=== PATIENT | female | born 1960 | race Caucasian/White ===

== ENCOUNTER 2021-11-05 12:52 | Outpatient (REF) | payer OTHER, SELFPAY ==
[2021-11-05 14:14] LABS: Hematocrit 39.8 % (37.0-47.0); Hemoglobin 13.4 g/dl (12.0-16.0); Mean Corpuscular HGB Conc 33.7 g/dl (31.0-35.0); Mean Corpuscular Hemoglobin 30.7 pg (27.0-33.0); Mean Corpuscular Volume 91.3 fL (80.0-98.0); Mean Platelet Volume 10.3 fL (9.4-12.3); Platelet Count 301 X10*3/uL (160-400); Red Blood Count 4.36 X10*6/uL (4.20-5.50); White Blood Count 6.3 X10*3/uL (4.8-10.8)
[2021-11-05 14:27] LABS: Alanine Aminotransferase 26 U/L (0-31); Albumin Level 4.4 g/dL (3.5-5.0); Alkaline Phosphatase 125 U/L (39-117); Anion Gap 12 (12-20); Aspartate Amino Transferase 26 U/L (5-31); Bilirubin Total 0.7 mg/dL (0.0-1.0); Blood Urea Nitrogen 11 mg/dL (9-16); Calcium 9.7 mg/dL (8.4-10.2); Carbon Dioxide 28 mmol/L (22-29); Chloride 103 mmol/L (96-108); Cholesterol 203 mg/dL; Estimated Glomerular Filt Rate > 60; Glucose Fasting 89 mg/dL (60-99); HDL Cholesterol 53 mg/dL; LDL Cholesterol Calculated 135 mg/dl; Potassium 4.3 mmol/L (3.3-5.1); Sodium 139 mmol/L (135-145); Total Protein 7.3 g/dL (6.5-8.0); Triglycerides 79 mg/dL
[2021-11-05 14:48] LABS: TSH reflex Free T4 0.06 uIU/mL (0.32-4.0)
[2021-11-05 15:35] LABS: Free T4 (Free Thyroxine) 1.21 ng/dL (0.71-1.85)
== END 2021-11-05 12:53 | disposition home or self-care (01) ==
LOC: HO.WFDLDS 12:52
PROVIDERS: Visit Provider Hospitalist
DX: Z00.00 Encounter for general adult medical examination without abnormal findings (principal); R82.71 Bacteriuria
CPT/HCPCS: 36415; 80053; 80061; 84439; 84443; 85027; 87086; 87088; 87186

== ENCOUNTER 2022-03-08 08:00 | Outpatient (REF) | payer OTHER, SELFPAY ==
[2022-03-08 09:17] LABS: Alanine Aminotransferase 27 U/L (0-31); Albumin Level 4.1 g/dL (3.5-5.0); Alkaline Phosphatase 130 U/L (39-117); Anion Gap 10 (12-20); Aspartate Amino Transferase 23 U/L (5-31); Blood Urea Nitrogen 16 mg/dL (9-16); Calcium 9.4 mg/dL (8.4-10.2); Carbon Dioxide 28 mmol/L (22-29); Chloride 104 mmol/L (96-108); Cholesterol 199 mg/dL; Estimated Glomerular Filt Rate > 60; Glucose Fasting 100 mg/dL (60-99); HDL Cholesterol 56 mg/dL; LDL Cholesterol Calculated 133 mg/dl; Potassium 4.4 mmol/L (3.3-5.1); Sodium 138 mmol/L (135-145); Total Protein 6.9 g/dL (6.5-8.0); Triglycerides 54 mg/dL
[2022-03-08 09:30] LABS: Vitamin D 25-OH Total 32.8 ng/mL (>30)
== END 2022-03-08 08:01 | disposition home or self-care (01) ==
LOC: HO.LAB 08:00
PROVIDERS: PCP Internal Medicine; Visit Provider Internal Medicine
DX: E78.5 Hyperlipidemia, unspecified (principal); E78.00 Pure hypercholesterolemia, unspecified; E55.9 Vitamin D deficiency, unspecified; M81.0 Age-related osteoporosis without current pathological fracture
CPT/HCPCS: 36415; 80053; 80061; 82306

== ENCOUNTER 2022-03-20 07:33 | Outpatient (REF) | payer OTHER, SELFPAY ==
--- NOTE | ~2022-03-20 | MM_ITS ---
EXAMINATION: MM SCREENING DIGITAL BREAST TOMOSYNTHESIS, BILATERAL CLINICAL INFORMATION: Screening. Asymptomatic. The lifetime risk of breast cancer based on the Tyrer-Cuzick Model is 5%. COMPARISON: Mammography: 02/07/2017 TECHNIQUE: Digital breast tomosynthesis is performed in both the craniocaudal and mediolateral oblique views along with computer-aided detection (CAD). Synthesized 2D images are generated from the tomosynthesis. FINDINGS: There are scattered areas of fibroglandular density (ACR BI-RADS breast composition Category b). There are no significant masses, abnormal calcifications, or other abnormalities. Fine fibronodular parenchymal pattern is similar to prior exams. The axilla and skin contours are unremarkable. MM/MM tomosynthesis screening BI IMPRESSION: No mammographic evidence of malignancy. ASSESSMENT: BI-RADS 1: Negative RECOMMENDATION: Routine annual mammography screening. This patient's information was entered into a reminder system with a target due date for their next mammogram.
--- NOTE | ~2022-03-20 | MM_ITS ---
EXAMINATION: BONE DENSITOMETRY CLINICAL INDICATION: Age-related osteoporosis without current pathological fracture. COMPARISON: Baseline BD dated 07/30/2016. TECHNIQUE: Using a [email or web address] DXA System (software version: 13.1) manufactured by [email or web address], dual-energy x-ray absorptiometry was performed of the lumbar spine and left hip. The images are of good technical quality. Summary results are attached. FINDINGS: AP SPINE L1-L4: Current: BMD 0.760 g/cm2, Z-score -1.8, T-score -3.5, osteoporosis, 11.6% decrease from baseline (<5% change is not significant). Baseline: BMD 0.860 g/cm2. LEFT FEMUR, NECK: Current: BMD 0.726 g/cm2, Z-score -0.7, T-score -2.2, osteopenia. Baseline: BMD 0.810 g/cm2. LEFT FEMUR, TOTAL: Current: BMD 0.772 g/cm2, Z-score -0.6, T-score -1.9, osteopenia, 12.6% decrease from baseline (<5% change is not significant). Baseline: BMD 0.883 g/cm2. IDENTIFIED RISK FACTORS: Osteoporosis, renal, history of fracture (adult). Early menopause, secondary osteoporosis, hysterectomy, bilateral oophorectomy. HISTORY OF FRACTURE: Femur/hip. MEDICATIONS: None listed. MM/XR DEXA axial skeleton IMPRESSION: 1. DIAGNOSIS: Osteoporosis based on the lowest T-score value of -3.5 in the lumbar spine applying World Health Organization criteria. 2. 10-YEAR FRACTURE RISK PREDICTION, FRAX: According to the guidelines, FRAX calculation should only be performed on patients in the osteopenia bone density category. Therefore, FRAX was not performed on this patient. 3. Treatment Recommendations: NOF guidelines recommend consideration for treatment in postmenopausal women and men age 50 and older presenting with the following: -A hip or vertebral (clinical or morphometric) fracture. -T-score less than or equal to -2.5 at the femoral neck or spine after appropriate evaluation to exclude secondary causes. -Low bone mass at the hip or spine and a 10-year fracture probability by FRAX of greater than or equal to 3% for hip fracture or greater than or equal to 20% for major osteoporotic fracture based on the [place] adapted WHO algorithm. 4. Other Recommendations: All treatment decisions require clinical judgment and consideration of individual patient factors, including patient preferences, comorbidities, previous drug use, risk factors not captured in the FRAX model (e.g. frailty, falls, vitamin D deficiency, increased bone turnover, interval significant decline in bone density) and possible under or overestimation of fracture risk by FRAX. Additional medical evaluation for secondary cause of low bone mineral density may be appropriate. FUTURE SCAN RECOMMENDATION: People with diagnosed cases of osteoporosis or at high risk for fracture should have regular bone mineral density tests. For patients eligible for Medicare, routine testing is allowed once every 2 years. The testing frequency can be increased to one year for patients who have rapidly progressing disease, those who are receiving or discontinuing medical therapy to restore bone mass, or have additional risk factors.
== END 2022-03-20 07:34 | disposition home or self-care (01) ==
LOC: HO.MAMMO 07:33
PROVIDERS: PCP Internal Medicine; Visit Provider Internal Medicine
DX: Z12.31 Encounter for screening mammogram for malignant neoplasm of breast (principal); Z13.820 Encounter for screening for osteoporosis; M81.0 Age-related osteoporosis without current pathological fracture; Z78.0 Asymptomatic menopausal state
CPT/HCPCS: 77063; 77067; 77080

== ENCOUNTER 2022-03-22 06:15 | Outpatient (REF) | payer OTHER, SELFPAY ==
[2022-03-22 07:46] LABS: Anion Gap 11 (12-20); Blood Urea Nitrogen 16 mg/dL (9-16); Calcium 9.5 mg/dL (8.4-10.2); Carbon Dioxide 28 mmol/L (22-29); Chloride 105 mmol/L (96-108); Estimated Glomerular Filt Rate > 60; Glucose Fasting 96 mg/dL (60-99); Potassium 4.3 mmol/L (3.3-5.1); Sodium 140 mmol/L (135-145)
[2022-03-22 08:11] LABS: Free T4 (Free Thyroxine) 1.19 ng/dL (0.71-1.85); Thyroid Stimulating Hormone 0.01 uIU/mL (0.32-4.0)
== END 2022-03-22 06:16 | disposition home or self-care (01) ==
LOC: HO.LAB 06:15
PROVIDERS: PCP Internal Medicine; Visit Provider Internal Medicine
DX: Z00.00 Encounter for general adult medical examination without abnormal findings (principal); E03.9 Hypothyroidism, unspecified
CPT/HCPCS: 36415; 80048; 84439; 84443

== ENCOUNTER 2022-03-26 14:57 | Outpatient (REF) | payer OTHER, SELFPAY ==
[2022-03-26 17:58] LABS: Phosphorus 3.8 mg/dL (2.7-4.5)
[2022-03-28 22:36] LABS: Prot Elec - Albumin 4.1 g/dL (3.8-4.8); Prot Elec - Alpha1 0.3 g/dL (0.2-0.3); Prot Elec - Alpha2 0.7 g/dL (0.5-0.9); Prot Elec - Beta 1 0.5 g/dL (0.4-0.6); Prot Elec - Beta 2 0.3 g/dL (0.2-0.5); Prot Elec - Total Protein 6.8 g/dL (6.1-8.1)
== END 2022-03-26 14:58 | disposition home or self-care (01) ==
LOC: HO.LAB 14:57
PROVIDERS: PCP Internal Medicine; Visit Provider Internal Medicine Endocrinology, Diabetes & Metabolism
DX: M81.0 Age-related osteoporosis without current pathological fracture (principal)
CPT/HCPCS: 84100; 84165; 86335; 99202

== ENCOUNTER 2022-03-28 10:54 | Outpatient (REF) | payer OTHER, SELFPAY ==
[2022-03-28 11:33] LABS: Total Volume 24 Hour Urine 2000 mL
[2022-03-28 12:22] LABS: Creatinine, 24Hr Urine 0.5 G/Day (1.0-2.0); Creatinine, mg/dL 24.76
[2022-03-30 17:01] LABS: Calcium, 24 Hr Urine 168 mg/24 h; Calcium/Creatinine Ratio 323 mg/g creat (30-275); Creatinine 24Hr Urine 0.52 g/24 h (0.50-2.15)
== END 2022-03-28 10:55 | disposition home or self-care (01) ==
LOC: HO.LNP 10:54
PROVIDERS: Visit Provider Internal Medicine Endocrinology, Diabetes & Metabolism
DX: M81.0 Age-related osteoporosis without current pathological fracture (principal)
CPT/HCPCS: 82340; 82570

== ENCOUNTER 2022-04-01 19:40 | Emergency (ER) | payer OTHER, SELFPAY ==
[2022-04-01 22:22] VITALS: BP 144/78; PULSE 75; RESP 16; TEMP 36.1; O2SAT 99; BMI 21.6
--- NOTE | 2022-04-01 23:56 | ED_ITS ---
HPI - Ear Problem General Chief complaint: Ear Problems Stated complaint: ear pain Time Seen by Provider: 04/01/22 23:42 Source: patient and reimbursement analyst Mode of arrival: ambulatory Limitations: no limitations History of Present Illness HPI Narrative: 62 y/o female presents to the ER for evaluation of left ear pain for the last 2 days. She reports throbbing pain and yellow discharge. She has been putting alcohol in her ear to help with itching sensation. She reports her hearing is slightly muffled. No fever or chills. No URI symptoms. MD Complaint: ear pain Location: left ear Duration: constant Severity: moderate Relieving factors: ear drops Exacerbating factors: chewing, position of head and palpation Discharge from ear: yes - purulent Associated symptoms ear: decreased hearing, external ear tenderness and ear swelling Treatment prior to arrival: eardrops Related Data Previous Rx's Medication Instructions Recorded levothyroxine 88 mcg tablet 88 mcg PO DAILY 90 Days #90 tab 03/23/22 cholecalciferol (vitamin D3) 50 50 mcg PO DAILY #30 cap 03/26/22 mcg (2,000 unit) capsule amoxicillin 875 mg-potassium 1 tab PO Q12H #20 tab 04/02/22 clavulanate 125 mg tablet dnytqgfc-szxpjytah-wlwdrfmcs 3.5 4 drp OTIC (EAR) LEFT Q6H 10 Days 04/02/22 mg/mL-10,000 unit/mL-1 % ear #10 ml solution Allergies Allergy/AdvReac Type Severity Reaction Status Date / Time doxycycline [DOXYCYCLINE] Allergy Unknown VOMITING/NA Verified 03/26/22 15:07 USEA Review of Systems Review of Systems: Constitutional: No Fever, No Chills ENT/Mouth: No sore throat, No Rhinorrhea, No Swallowing Difficulty, +otalgia, +ear discharge Cardiovascular: No Chest Pain, No SOB Respiratory: No Cough, No Sputum Gastrointestinal: No Nausea, No Vomiting Skin: No Skin Lesions, No rash Neuro: No Weakness, No Numbness, No Dizziness,+ Headache Psych: No Anxiety/Panic, No Depression Heme/Lymph: No Lymphadenopathy PMFSH Past Medical History Medical History (Updated 04/02/22 @ 00:18 by LANCE Escalante) Osteoporosis Pure hypercholesterolemia Vaginal pruritus Surgical History History of right breast biopsy History of total abdominal hysterectomy and bilateral salpingo-oophorectomy History of tubal ligation Family History Family History Mother Hypertension Poor circulation Father Diabetes Hypertension Hypothyroidism Poor circulation Social History Social History Housing: House (living with her daughter recently came from [place]) Alcohol intake: current Alcohol intake frequency: holidays/special occasions only Alcohol type: beer Patient Tobacco Use Status: Never used Tobacco e-Cigarette/Vaping Use: Never Used Second Hand Smoke Exposure: No Advance Directives: No service: No Current occupational status: unemployed Cognitive needs: No Hearing needs: No Vision needs: No Physical Exam Vital Signs: Vital Signs: Last Vital Signs Temp 97.0 F 04/01/22 22:22 Pulse 75 04/01/22 22:22 Resp 16 04/01/22 22:22 BP 144/78 H 04/01/22 22:22 Pulse Ox 99 04/01/22 22:22 BMI result Body Mass Index 21.6 Appearance: Alert. Oriented X3. No acute distress. HEENT: normal external inspection.right ear with normal EAC and TM. Left EAC with tenderness, moderate swelling and diffuse purulent discharge, TM visualization is partially obscured due to swelling. no mastoid tenderness. CVS: Normal heart rate and rhythm. Pulses normal. Respiratory: No respiratory distress. Skin: Skin warm and dry. Normal skin color. Normal skin turgor. No rashes. Extremities: normal inspection x4, normal ROM Neuro: Oriented X 3. No motor deficit. No sensory deficit. Course Course Course Narrative: 62 y/o female, non-diabetic presenting wtih left ear pain and discharge x2 days. Exam consistent with otits externa. Given inability to fully visualize TM, will also treat with PO abx for possible AOM. 1st doses given here. Stable for d/c home with topical and oral abx. 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 Critical Care Time Critical Care Time Critical Care Time: No Discharge Plan Discharge Clinical Impression: Otitis externa Patient Disposition: Home, Self-Care Instructions: Otitis Externa (DC) Additional Instructions: Use the ear drops as directed for a full 10 days and take the full course of oral antibiotics as well. Do not get any water in your ear, put a cotton ball in your ear when you shower. Follow up with your doctor as needed. If you develop new or worsening symptoms call 911 or come back to the ER for further evaluation. Prescriptions: New wgffdjon-iqzopinix-YK 3.5-10,000-1 mg/mL-unit/mL-% solution 4 drp otic (ear) left Q6H 10 Days Qty: 10 0RF amoxicillin-pot clavulanate 875-125 mg tablet 1 tab PO Q12H Qty: 20 0RF No Action levothyroxine 88 mcg tablet 88 mcg PO DAILY 90 Days Qty: 90 0RF cholecalciferol (vitamin D3) 50 mcg (2,000 unit) capsule 50 mcg PO DAILY Qty: 30 5RF Print Language: Portuguese
[2022-04-02] MEDS: Amoxicillin/Potassium Clav 875 MG TABLET PO (00:38)
[2022-04-02] MEDS: NeoMYCIN/Polymyxin/HC Otic Sus 10 ML DRPBTL 3 DROP EAR-LEFT (00:38)
[2022-04-02] MEDS: Ibuprofen 600 MG TABLET PO (00:38)
== END 2022-04-02 00:49 | disposition home or self-care (01) ==
PROVIDERS: Emergency Provider Student in an Organized Health Care Education/Training Program; PCP Internal Medicine
DX: H60.92 Unspecified otitis externa, left ear (principal); H92.02 Otalgia, left ear; Z79.899 Other long term (current) drug therapy
CPT/HCPCS: 99283; 99284

== ENCOUNTER 2022-04-23 08:03 | Outpatient (REF) | payer OTHER, SELFPAY ==
[2022-04-23 10:41] LABS: Albumin Level 4.1 g/dL (3.5-5.0); Anion Gap 13 (12-20); Blood Urea Nitrogen 9 mg/dL (9-16); Calcium 9.7 mg/dL (8.4-10.2); Carbon Dioxide 28 mmol/L (22-29); Chloride 104 mmol/L (96-108); Estimated Glomerular Filt Rate > 60; Glucose Random 103 mg/dL (60-115); Potassium 4.7 mmol/L (3.3-5.1); Sodium 140 mmol/L (135-145)
[2022-04-24 10:28] LABS: BV Int Neg Control Negative (Negative); BV Int Pos Control Positive (Positive)
== END 2022-04-23 08:04 | disposition home or self-care (01) ==
LOC: HO.LAB 08:03
PROVIDERS: Absent Provider Internal Medicine Endocrinology, Diabetes & Metabolism; PCP Internal Medicine; Visit Provider Obstetrics & Gynecology
DX: N76.0 Acute vaginitis (principal); M81.0 Age-related osteoporosis without current pathological fracture
CPT/HCPCS: 36415; 80048; 82040; 87480; 87510; 87660; 99202

== ENCOUNTER 2022-04-25 10:25 | Outpatient (REF) | payer OTHER, SELFPAY ==
[2022-04-25 11:24] LABS: Creatinine, mg/dL 42.29
[2022-04-25 12:50] LABS: Creatinine, 24Hr Urine 0.8 G/Day (1.0-2.0); Total Volume 24 Hour Urine 1925 mL
[2022-04-27 18:26] LABS: Calcium, 24 Hr Urine 210 mg/24 h; Calcium/Creatinine Ratio 266 mg/g creat (30-275); Creatinine 24Hr Urine 0.79 g/24 h (0.50-2.15)
== END 2022-04-25 10:26 | disposition home or self-care (01) ==
LOC: HO.LNP 10:25
PROVIDERS: Visit Provider Internal Medicine Endocrinology, Diabetes & Metabolism
DX: M81.0 Age-related osteoporosis without current pathological fracture (principal)
CPT/HCPCS: 82340; 82570

== ENCOUNTER 2022-05-06 08:34 | Outpatient (REF) | payer OTHER, SELFPAY | END 2022-05-06 08:35 | disposition home or self-care (01) | LOC: HO.LAB 08:34 | PROVIDERS: PCP Internal Medicine; Visit Provider Obstetrics & Gynecology | DX: N76.0 Acute vaginitis (principal); N76.6 Ulceration of vulva; M81.0 Age-related osteoporosis without current pathological fracture; E78.00 Pure hypercholesterolemia, unspecified | CPT/HCPCS: 56605; 56606; 88305; 88312; 99212 ==

== ENCOUNTER 2022-05-13 06:52 | Outpatient (REF) | payer OTHER, SELFPAY ==
[2022-05-13 07:59] LABS: Albumin Level 3.9 g/dL (3.5-5.0); Calcium 9.3 mg/dL (8.4-10.2)
[2022-05-13 08:27] LABS: Thyroid Stimulating Hormone < 0.01 uIU/mL (0.32-4.0)
== END 2022-05-13 06:53 | disposition home or self-care (01) ==
LOC: HO.LAB 06:52
PROVIDERS: Absent Provider Internal Medicine; PCP Internal Medicine; Visit Provider Internal Medicine Endocrinology, Diabetes & Metabolism
DX: N90.89 Other specified noninflammatory disorders of vulva and perineum (principal); M81.0 Age-related osteoporosis without current pathological fracture; E03.9 Hypothyroidism, unspecified
CPT/HCPCS: 36415; 82040; 82310; 84443; 99212

== ENCOUNTER 2022-08-16 07:45 | Outpatient (REF) | payer OTHER, SELFPAY ==
[2022-08-16 09:03] LABS: Thyroid Stimulating Hormone 0.19 uIU/mL (0.32-4.0)
== END 2022-08-16 07:46 | disposition home or self-care (01) ==
LOC: HO.LAB 07:45
PROVIDERS: PCP Internal Medicine; Visit Provider Internal Medicine Endocrinology, Diabetes & Metabolism
DX: E03.9 Hypothyroidism, unspecified (principal)
CPT/HCPCS: 36415; 84443

== ENCOUNTER → 2022-08-20 09:24 | Outpatient (BNVA) | payer OTHER, SELFPAY | PROVIDERS: PCP Internal Medicine; Visit Provider Internal Medicine Endocrinology, Diabetes & Metabolism | DX: M81.0 Age-related osteoporosis without current pathological fracture (principal) | CPT/HCPCS: 99212 ==

== ENCOUNTER 2023-03-19 06:04 | Outpatient (REF) | payer OTHER, SELFPAY ==
[2023-03-19 08:13] LABS: Thyroid Stimulating Hormone 10.35 uIU/mL (0.32-4.0)
== END 2023-03-19 06:05 | disposition home or self-care (01) ==
LOC: HO.LAB 06:04
PROVIDERS: PCP Internal Medicine; Visit Provider Internal Medicine
DX: E03.9 Hypothyroidism, unspecified (principal)
CPT/HCPCS: 36415; 84443

== ENCOUNTER → 2023-03-26 07:14 | Outpatient (BNVA) | payer OTHER, SELFPAY | PROVIDERS: PCP Internal Medicine; Visit Provider Internal Medicine Endocrinology, Diabetes & Metabolism | DX: M81.0 Age-related osteoporosis without current pathological fracture (principal) | CPT/HCPCS: 99212 ==

== ENCOUNTER 2023-04-18 13:58 | Outpatient (REF) | payer OTHER, SELFPAY ==
--- NOTE | ~2023-04-18 | MM_ITS ---
EXAMINATION: MM SCREENING DIGITAL BREAST TOMOSYNTHESIS, BILATERAL CLINICAL INFORMATION: Screening. Asymptomatic. The lifetime risk of breast cancer based on the Tyrer-Cuzick Model is 5%. COMPARISON: Mammography: 03/20/2022, 02/07/2017 TECHNIQUE: Digital breast tomosynthesis is performed in both the craniocaudal and mediolateral oblique views along with computer-aided detection (CAD). Synthesized 2D images are generated from the tomosynthesis. FINDINGS: There are scattered areas of fibroglandular density (ACR BI-RADS breast composition Category b). There are no significant masses, abnormal calcifications, or other abnormalities. Parenchymal pattern is similar to prior studies. There is no developing density or architectural abnormality. The axilla and skin contours are unremarkable. No significant changes. MM/MM tomosynthesis screening BI IMPRESSION: No mammographic evidence of malignancy. ASSESSMENT: BI-RADS 1: Negative RECOMMENDATION: Routine annual mammography screening. This patient's information was entered into a reminder system with a target due date for their next mammogram.
== END 2023-04-18 13:59 | disposition home or self-care (01) ==
LOC: HO.MAMMO 13:58
PROVIDERS: PCP Internal Medicine; Visit Provider Internal Medicine
DX: Z12.31 Encounter for screening mammogram for malignant neoplasm of breast (principal)
CPT/HCPCS: 77063; 77067

== ENCOUNTER 2023-04-25 13:10 | Outpatient (REF) | payer OTHER, SELFPAY | END 2023-04-25 13:11 | disposition home or self-care (01) | LOC: HO.LAB 13:10 | PROVIDERS: PCP Internal Medicine; Visit Provider Internal Medicine | DX: E03.9 Hypothyroidism, unspecified (principal) | CPT/HCPCS: 36415; 84443 ==

== ENCOUNTER 2023-09-13 07:40 | Outpatient (REF) | payer OTHER, SELFPAY ==
[2023-09-13 09:48] LABS: Alanine Aminotransferase 16 U/L (0-31); Albumin Level 4.2 g/dL (3.5-5.0); Alkaline Phosphatase 81 U/L (39-117); Anion Gap 14 (12-20); Aspartate Amino Transferase 18 U/L (5-31); Bilirubin Total 1.1 mg/dL (0.0-1.0); Blood Urea Nitrogen 15 mg/dL (9-16); Carbon Dioxide 27 mmol/L (22-29); Chloride 105 mmol/L (96-108); Cholesterol 178 mg/dL (<200); Estimated Glomerular Filt Rate > 60; Glucose Fasting 90 mg/dL (60-99); HDL Cholesterol 55 mg/dL (>40); LDL Cholesterol Calculated 111 mg/dL (<100); Potassium 4.5 mmol/L (3.3-5.1); Sodium 141 mmol/L (135-145); Triglycerides 61 mg/dL (<150)
[2023-09-13 09:54] LABS: Thyroid Stimulating Hormone 0.13 uIU/mL (0.32-4.0); Vitamin D 25-OH Total 48.7 ng/mL (>30)
[2023-09-13 09:57] LABS: Thyroid Stimulating Hormone 0.13 uIU/mL (0.32-4.0)
== END 2023-09-13 07:41 | disposition home or self-care (01) ==
LOC: HO.LAB 07:40
PROVIDERS: PCP Internal Medicine; Visit Provider Internal Medicine
DX: E03.9 Hypothyroidism, unspecified (principal); E78.00 Pure hypercholesterolemia, unspecified; E78.5 Hyperlipidemia, unspecified; E55.9 Vitamin D deficiency, unspecified
CPT/HCPCS: 36415; 80053; 80061; 82306; 84443

== ENCOUNTER 2023-09-16 07:14 | Outpatient (AMB) | payer OTHER, SELFPAY ==
[2023-09-16 07:29] VITALS: BP 150/90; PULSE 62; O2SAT 96; BMI 22.5
--- NOTE | 2023-09-16 07:29 | MHC.PC.OV ---
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 Accompanied by: Self / Same As Patient Allergies doxycycline [DOXYCYCLINE] Allergy (Unknown, Verified 09/16/23 07:32) VOMITING/NAUSEA Medication List - Last Reconciled 09/16/23 by Leilani Espana MD alendronate 70 mg PO QWEEK cholecalciferol (vitamin D3) 50 mcg PO DAILY levothyroxine 75 mcg PO DAILY 90 days Tobacco use date assessed: 03/19/23 Dental Screening Dental Screen Date: 09/16/23 Did you have a dental visit in the last 12 months?: No Did you have a dental problem in the last 6 months where you did not have access to dental care?: No Was dental information given to patient?: Patient has dentist HPI HPI Comments History of Present Illness Details This is a 63-year-old female that comes for her physical exam. Last bone density was March 2022 and she has osteoporosis follow by Endocrinology. Last mammogram was 2022. Last colonoscopy was 2012 which was normal and is scheduled for another colonoscopy October 2023. No need for Pap smears due to hysterectomy for benign reasons. No chest pain or shortness of breath. Complains of tender veins in upper thighs and would like to see vascular surgery. Also complains of macular hypopigmented skin lesions that she recently noticed and would like to see dermatology. [facility] Medical History (Updated 09/16/23 @ 08:27 by Leilani Espana MD) Ear discomfort Pure hypercholesterolemia Vaginal pruritus Osteoporosis Surgical History History of total abdominal hysterectomy and bilateral salpingo-oophorectomy History of right breast biopsy History of tubal ligation Family History Mother Hypertension Poor circulation Father Diabetes Hypertension Hypothyroidism Poor circulation Social History Household Members: Family Housing: House Alcohol intake: current Alcohol intake frequency: holidays/special occasions only Alcohol type: beer Patient Tobacco Use Status: Never used Tobacco e-Cigarette/Vaping Use: Never Used Second Hand Smoke Exposure: No service: No Current occupational status: unemployed Sexual orientation: Straight/Heterosexual Gender identity: Female Cognitive needs: No Hearing needs: No Vision needs: No Questionnaire Thrive Questionnaire Date Thrive assessed: 03/19/23 JESUS-7 AMB Questionnaire JESUS-7 Date JESUS - 7 assessed: 03/19/23 Source: Developed by Drs. Asaf Bhakta, Katarina Ochoa, Jarred Page and colleagues, with an educational dorian from [employer]. Review of Systems Const All systems reviewed & are unremarkable except as noted in HPI and below Eyes Reports no additional complaints, Denies change in vision and Denies other visual disturbances Card Denies chest pain at rest, Denies chest pain with activity, Denies edema, Denies irregular heart rhythm, Denies claudication, Denies dyspnea, Denies dyspnea on exertion, Denies orthopnea, Denies paroxysmal nocturnal dyspnea and Denies slow heart rate Resp Denies cough, Denies dyspnea and Denies dyspnea on exertion GI Denies abdominal pain, Denies change in bowel habits, Denies excessive flatus, Denies nausea and Denies vomiting Denies urinary incontinence, Denies urinary hesitancy and Denies urinary urgency Musc Denies abnormal gait, Denies atrophy, Denies deformity and Denies limited range of motion Skin/Breast Denies bleeding lesions, Denies changing lesions and Denies rash Neuro Denies abnormal gait and Denies lack of coordination Physical exam (Primary Care) Vital Signs: Last Vital Signs Pulse 62 09/16/23 07:29 BP 140/90 H 09/16/23 08:00 Pulse Ox 96 09/16/23 07:29 Oxygen Delivery Method Room Air 09/16/23 07:29 BMI result Body Mass Index 22.5 Tobacco/Smoking Status: Tobacco use Status Tobacco use date assessed 03/19/23 09/16/23 07:35 Patient Tobacco Use Status Never used Tobacco 09/16/23 07:35 Tobacco use type 05/13/22 12:16 e-Cigarette/Vaping Use Never Used 09/16/23 07:35 Thrive Assessment: Date of Thrive Assessment Date Thrive assessed 03/19/23 09/16/23 07:35 Const Orientation/consciousness: patient oriented x3 HENMT Head: Yes normal to inspection, Yes normocephalic and Yes atraumatic Ears: external ears normal Eyes General: appearance normal, both eyes and all related structures Eyelids: Yes eyelids normal Conjunctivae: conjunctivae normal Neck Neck: Yes normal visual inspection and Yes supple Resp Effort & Inspection: normal respiratory effort Auscultation: clear to auscultation bilaterally Cardio Jugular venous distension: no JVD Rate: regular rate Rhythm: regular rhythm Heart sounds: S1 normal heart sound present and S2 normal heart sound present GI Inspection: Yes normal to inspection Palpation (GI): Soft to palpation and nontender Auscultation: normal bowel sounds Skin General skin exam: no rashes or lesions noted Neuro General: patient oriented x3 and no focal motor deficits Extrem General: Yes full ROM Psych Appearance: grossly normal Office Procedures Flu Questionnaire Does the patient have a severe egg allergy?: No Immunizations flu vacc [id number] 6mos up(PF) 60 mcg(15 mcgx4)/0.5 mL IM syringe Performing Provider: Leilani Espana MD [facility] Documented (not given) by: Rohit Collazo Maddie on 09/16/23 07:35 Reason Not Given: Patient Refused Assessment and Plan Assessment & Plan (1) Physical exam: Code(s): Z00.00 - Encounter for general adult medical examination without abnormal findings Plan: Repeat in a year. Orders: Orders Influenza [id number] Immunization Today Z23 - Encounter for immunization Thyroid Stimulating Hormone 6 Weeks E03.9 - Hypothyroidism, unspecified Referrals Dermatology Referral L80 - Vitiligo Vascular Surgery Referral I87.2 - Venous insufficiency (chronic) (peripheral) Medications: New cholecalciferol (vitamin D3) 25 mcg PO DAILY 90 caps 1RF 90 days levothyroxine Take 1 tablet once a day from Friday to Friday. 50 mcg PO .as directerd 20 tabs 6RF 30 days Changed From levothyroxine 75 mcg PO DAILY 90 days 90 tabs 0RF E03.9 - Hypothyroidism, unspecified To levothyroxine Take 1 tablet Friday and Friday. 75 mcg PO DIRECTED 8 tabs 6RF 30 days E03.9 - Hypothyroidism, unspecified Discontinued cholecalciferol (vitamin D3) Discontinued Reason: Patient Completed Course 50 mcg PO DAILY 30 caps 5RF Coding Level of Care Code Est Pt Prev Care 40-64y(61318) Diagnoses Physical exam Z00.00 Time Spent (min) 32
[2023-09-16 08:00] VITALS: BP 140/90
== END 2023-09-16 07:59 | disposition home or self-care (01) ==
PROVIDERS: PCP Internal Medicine; Visit Provider Internal Medicine
DX: Z00.00 Encounter for general adult medical examination without abnormal findings (principal)
CPT/HCPCS: 99396

== ENCOUNTER 2023-09-22 08:09 | Outpatient (AMB) | payer OTHER, SELFPAY ==
--- NOTE | 2023-09-22 08:13 | A.OFFVIS_ITS ---
Intake Vital Signs 09/22/23 08:14 Height 5 ft 1 in Weight 119 lb BMI 22.5 BP 140/76 H Blood Pressure Location Lt brachial Position Sitting Pulse 78 Intake Visit Reasons: Colonoscopy screening Intake Note: Patient new consult for 2nd pre colonoscopy screening. Patient cc: LLQ pain and she is feeling a cyst in that area, some dysphagia on and off and some involuntary BM. Crown Presser Required: Yes Crown Presser Name: Ximena [id number] Accompanied by: Self / Same As Patient Allergies doxycycline [DOXYCYCLINE] Allergy (Unknown, Verified 09/22/23 08:13) VOMITING/NAUSEA Medication List - Last Reconciled 09/22/23 by Veronica Gomes PA-C alendronate 70 mg PO QWEEK cholecalciferol (vitamin D3) 25 mcg PO DAILY 90 days levothyroxine 50 mcg PO .as directerd 30 days levothyroxine 75 mcg PO DIRECTED 30 days HPI HPI Comments History of Present Illness Details A 63-year-old female referred for screening colonoscopy-she has intermittent left lower quadrant discomfort specific makes it better or worse-no associatation with bowel movements or food She has a good appetite Bowels- are normal No cardiac or respiratory issues Under nausea, vomiting, hematemesis, hematochezia fever chills She will be going to [place] to help care for her mother soon. [facility] Medical History Ear discomfort Pure hypercholesterolemia Vaginal pruritus Osteoporosis Surgical History History of total abdominal hysterectomy and bilateral salpingo-oophorectomy History of right breast biopsy History of tubal ligation Family History Mother Hypertension Poor circulation Father Diabetes Hypertension Hypothyroidism Poor circulation Social History Household Members: Family Housing: House Alcohol intake: current Alcohol intake frequency: holidays/special occasions only Alcohol type: beer Patient Tobacco Use Status: Never used Tobacco e-Cigarette/Vaping Use: Never Used Second Hand Smoke Exposure: No service: No Current occupational status: unemployed Sexual orientation: Straight/Heterosexual Gender identity: Female Cognitive needs: No Hearing needs: No Vision needs: No Review of Systems Const All systems reviewed & are unremarkable except as noted in HPI and below Card Denies chest pain and Denies dyspnea Resp Denies dyspnea GI Reports abdominal pain (Intermittent left lower quadrant), Denies hematochezia, Denies nausea and Denies vomiting Physical Exam Vital Signs: Last Vital Signs Pulse 78 09/22/23 08:14 BP 140/76 H 09/22/23 08:14 BMI result Body Mass Index 22.5 Eyes Sclerae: sclerae normal Resp Effort & Inspection: normal respiratory effort and able to speak in complete sentences Auscultation: clear to auscultation bilaterally, no rales, no rhonchi and no wheezes Cardio Rate: regular rate Rhythm: regular rhythm Heart sounds: S1 normal heart sound present and S2 normal heart sound present GI Palpation (GI): Soft to palpation and nontender Auscultation: normal bowel sounds Extrem General: Yes full ROM Psych Appearance: grossly normal and well kempt Mental Status: mental status grossly normal Speech and movement: Normal speech and movement present and Clear speech present Affect: normal affect Attitude: cooperative Thought process: Normal thought process present Thought content: Normal thought content present Insight: Good insight present (Psych) Judgement: Good judgement present (Psych) Assessment & Plan Assessment & Plan (1) Encounter for screening colonoscopy: Comment: Screening colonoscopy Indications, need for escorted due to anesthesia as well as rare risks discussed Code(s): Z12.11 - Encounter for screening for malignant neoplasm of colon Plan: Screening colonoscopy MG prep. Plan Screening colonoscopy- pt prefers January- 2023 MG prep Orders: Orders Colonoscopy - GI Use Only Today Z12.11 - Encounter for screening for malignant neoplasm of colon Medications: New bisacodyl (Dulcolax (bisacodyl)) Day before procedure, prep day Take 4 tablets by mouth upon awakening followed by large glass of water 20 mg (4 x 5 mg) PO ONCE 4 tabs 0RF colonoscopy prep 1 day Z12.11 - Encounter for screening for malignant neoplasm of colon polyethylene glycol 3350 (Miralax) Take as directed by mouth the day before your procedure. 238 grams PO ONCE PRN 238 grams 0RF laxative effect 1 day Patient Instructions: A 63-year-old female referred for screening colonoscopy . Screening colonoscopy MG prep Must be escorted due to anesthesia Any change in abdominal pain she will follow-up. 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
[2023-09-22 08:14] VITALS: BP 140/76; PULSE 78; BMI 22.5
== END 2023-09-22 08:47 | disposition home or self-care (01) ==
PROVIDERS: PCP Internal Medicine; Visit Provider Physician Assistant
DX: Z12.11 Encounter for screening for malignant neoplasm of colon (principal); Z01.818 Encounter for other preprocedural examination
CPT/HCPCS: 99203

== ENCOUNTER → 2023-09-22 08:09 | Outpatient (BNVA) | payer OTHER, SELFPAY | PROVIDERS: PCP Internal Medicine; Visit Provider Physician Assistant ==

== ENCOUNTER 2024-04-14 09:23 | Outpatient (REF) | payer OTHER, SELFPAY ==
[2024-04-14 10:42] LABS: Thyroid Stimulating Hormone 3.06 uIU/mL (0.32-4.0)
== END 2024-04-14 09:24 | disposition home or self-care (01) ==
LOC: HO.LAB 09:23
PROVIDERS: PCP Internal Medicine; Visit Provider Internal Medicine
DX: M81.0 Age-related osteoporosis without current pathological fracture (principal); Z79.899 Other long term (current) drug therapy; E03.9 Hypothyroidism, unspecified
CPT/HCPCS: 36415; 84443; 99212

== ENCOUNTER 2024-04-14 10:08 | Outpatient (AMB) | payer OTHER, SELFPAY ==
[2024-04-14 10:09] VITALS: BP 140/80; PULSE 65; BMI 22.5
--- NOTE | 2024-04-14 10:09 | A.OFFVIS_ITS ---
Vital Signs 04/14/24 10:09 Height 5 ft 1 in Weight 119 lb BMI 22.5 BP 140/80 H Blood Pressure Location Rt brachial Position Sitting Pulse 65 Pulse Source Pulse Oximeter Intake Visit Reasons: f/u osteoporosis-CONFIRMED Intake Note: Patient present today for Osteoporosis follow up visit. Ground Support Equipment Assembler Required: Yes Ground Support Equipment Assembler Language: Receiving Coordinator Name: Katia Information Interpreted: non-clinical & clinical Accompanied by: Self / Same As Patient Allergies doxycycline [DOXYCYCLINE] Allergy (Unknown, Verified 04/14/24 10:16) VOMITING/NAUSEA HPI Comments Details: 64 YO [Female] is seen in consultation at the request of PCP for Osteoporosis. First diagnosed in 5-7 yrs .Pt is poor historian Received treatment in the past with Prolia , for 5 yrs . Treatment stopped 7 yrs ago Tolerated treatment well without complication. Patient currently alendronate 70 mg Q weekly after attempting to get insurance coverage for anabolic therapy or Prolia without success No history of pathologic fracture or ONJ. . Does not Takes Calcium supplement . Does not Takes IU of Vitamin D daily. Denies ever using PPI, anticoagulant, antiepileptic or glucocorticoid medication. 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 Denies episodes of amenorhea Has history of Kidney stones: Has family history of Osteoporosis but no hip fracture. UTD on dental cleanings and sees dentist every 6 months.Has no seen dentist in 3 yrs No planned upcoming dental work or extractions. DXA dated 03/20/22 :T-Score -3.5 LS Taking calcium and vitamin D Labs: No fx since last visit. Tolerating alendronate without problems PFSH Medical History Ear discomfort Pure hypercholesterolemia Vaginal pruritus Osteoporosis Surgical History History of total abdominal hysterectomy and bilateral salpingo-oophorectomy History of right breast biopsy History of tubal ligation Family History Mother Hypertension Poor circulation Father Diabetes Hypertension Hypothyroidism Poor circulation Social History Household Members: Family Housing: House Alcohol intake: current Alcohol intake frequency: holidays/special occasions only Alcohol type: beer Patient Tobacco Use Status: Never used Tobacco e-Cigarette/Vaping Use: Never Used Second Hand Smoke Exposure: No service: No Current occupational status: unemployed Sexual orientation: Straight/Heterosexual Gender identity: Female Cognitive needs: No Hearing needs: No Vision needs: No Physical Exam Vital Signs: Last Vital Signs Pulse 65 04/14/24 10:09 BP 140/80 H 04/14/24 10:09 BMI result Body Mass Index 22.5 Assessment & Plan Assessment & Plan (1) Osteoporosis: Code(s): M81.0 - Age-related osteoporosis without current pathological fracture Category: Medical Plan: This is a 63-year-old female with a history of osteoporosis with negative secondary workup. It is unclear but it appears that she had taken a 5 year course of Prolia. she is currently on alendronate 70 mg q.week. Plan is to Continue alendronate, calcium and vitamin-D supplementation. Will check urine NTX and repeat bone density. If bone density is significantly declining, asked patient to reconsider taking anabolic therapy as in the past she was reluctant to take either Evenity, Tymlos or Forteo but might reconsider if necessary Orders: Orders XR DEXA axial skeleton Today M81.0 - Age-related osteoporosis without current pathological fracture Collagen Crosslinks NTX Today M81.0 - Age-related osteoporosis without current pathological fracture Coding Level of Care Code Est Pt Level 3 (17628) Diagnoses Osteoporosis M81.0
== END 2024-04-14 10:42 | disposition home or self-care (01) ==
PROVIDERS: PCP Internal Medicine; Visit Provider Internal Medicine Endocrinology, Diabetes & Metabolism
DX: M81.0 Age-related osteoporosis without current pathological fracture (principal)
CPT/HCPCS: 99213

== ENCOUNTER 2024-04-15 09:45 | Outpatient (REF) | payer OTHER, SELFPAY ==
[2024-04-22 23:18] LABS: N-Telopeptide 25 (see note); NTXCreaRU 109 mg/dL (20-275)
== END 2024-04-15 09:46 | disposition home or self-care (01) ==
LOC: HO.LNP 09:45
PROVIDERS: Visit Provider Internal Medicine Endocrinology, Diabetes & Metabolism
DX: M81.0 Age-related osteoporosis without current pathological fracture (principal)
CPT/HCPCS: 82523

== ENCOUNTER 2024-04-21 08:57 | Outpatient (REF) | payer OTHER, SELFPAY ==
[2024-04-28 22:48] LABS: HPV mRNA E6/E7 rflx Not Detected (Not Detected)
== END 2024-04-21 08:58 | disposition home or self-care (01) ==
LOC: HO.LNP 08:57
PROVIDERS: Visit Provider Obstetrics & Gynecology
DX: Z01.419 Encounter for gynecological examination (general) (routine) without abnormal findings (principal); Z11.51 Encounter for screening for human papillomavirus (HPV)
CPT/HCPCS: 87624; 88142; 99396

== ENCOUNTER 2024-04-21 08:57 | Outpatient (AMB) | payer OTHER, SELFPAY ==
[2024-04-21 09:12] VITALS: BP 126/82; BMI 22.1
--- NOTE | 2024-04-21 09:12 | A.OFFVIS_ITS ---
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 No complaints. Last Pap/HPV was in 07/17 was negative the patient had TAHBSO benign reasons. The patient has history of cone biopsy with ? History of moderate to severe dysplasia Last Mammogram was BI-RADS 1 in 04/22, the patient is scheduled for another screening mammogram in 04/29/2024 Patient was had DEXA scan in 03/22 showing osteoporosis and has been on alendronate 70 mg p.o. q. week, DEXA scan scheduled in 10/2024 Last Colonoscopy was more than 10 years ago, the patient is scheduled for another screening colonoscopy in 11/23 [facility] Medical History Ear discomfort Pure hypercholesterolemia Vaginal pruritus Osteoporosis Surgical History History of total abdominal hysterectomy and bilateral salpingo-oophorectomy History of right breast biopsy History of tubal ligation Family History Mother Hypertension Poor circulation Father Diabetes Hypertension Hypothyroidism Poor circulation Social History Household Members: Family Housing: House Alcohol intake: current Alcohol intake frequency: holidays/special occasions only Alcohol type: beer Patient Tobacco Use Status: Never used Tobacco e-Cigarette/Vaping Use: Never Used Second Hand Smoke Exposure: No service: No Current occupational status: unemployed Sexual orientation: Straight/Heterosexual Gender identity: Female Cognitive needs: No Hearing needs: No Vision needs: No Female Reproductive History Menstrual Date of last pap smear: 07/08/17 Date of Mammogram: 04/18/23 Review of Systems Const All systems reviewed & are unremarkable except as noted in HPI and below Card Reports as per HPI and Reports no additional complaints Resp Reports as per HPI and Reports no additional complaints GI Reports as per HPI and Reports no additional complaints Reports as per HPI Physical Exam Vital Signs: Last Vital Signs BP 126/82 04/21/24 09:12 BMI result Body Mass Index 22.1 Const General: cooperative, healthy appearing and comfortable General: Yes bladder normal to palpation External Female Exam: No lesion Speculum Exam - Vagina: normal appearance of the vagina, normal vaginal discharge and not erythematous Speculum Exam - Cervix: Cervix absent Bimanual exam- vagina & uterus: bladder normal to palpation and uterus absent Bimanual Exam- Adnexa, other: Other (No masses detected) Assessment & Plan Assessment & Plan (1) Well woman exam: Code(s): Z01.419 - Encounter for gynecological examination (general) (routine) without abnormal findings Category: Medical Plan: Vaginal Co testing done since the patient had history of ? Moderate to severe dysplasia status post cone 30 years ago, although the patient had hysterectomy for benign causes. Counseled the patient about the recommended dietary allowance of 1200 mg of Calcium & 600 IU of vitamin D. Mammogram scheduled on 04/29/24 Screening colonoscopy schedule in October 2024 DEXA scan scheduled in October 2024. The patient was instructed to perform monthly self-breast exams and schedule annual exam in a year. All questions answered and the patient verbalized understanding. Orders: Orders MM tomosynthesis screening BI Today Z12.31 - Encounter for screening mammogram for malignant neoplasm of breast Coding Level of Care Code Est Pt Prev Care 40-64y(82769) Diagnoses Well woman exam Z01.419
== END 2024-04-21 09:43 | disposition home or self-care (01) ==
PROVIDERS: Visit Provider Obstetrics & Gynecology
DX: Z01.419 Encounter for gynecological examination (general) (routine) without abnormal findings (principal)
CPT/HCPCS: 99396

== ENCOUNTER 2024-04-29 11:27 | Outpatient (REF) | payer OTHER, SELFPAY ==
--- NOTE | ~2024-04-29 | MM_ITS ---
EXAMINATION: MM SCREENING DIGITAL BREAST TOMOSYNTHESIS, BILATERAL CLINICAL INFORMATION: Screening. Asymptomatic. History of right excisional biopsy. COMPARISON: Mammography: 04/18/2023, 03/20/2022, 02/07/2017. TECHNIQUE: Digital breast tomosynthesis is performed in both the craniocaudal and mediolateral oblique views along with computer-aided detection (CAD). Synthesized 2D images are generated from the tomosynthesis. FINDINGS: The breasts are heterogeneously dense, which may obscure small masses (ACR BI-RADS breast composition Category c). Breast parenchyma is again noted to be somewhat nodular in appearance. There is mild scarring in the superior right breast related to prior lumpectomy, stable. There are no suspicious masses, suspicious grouped calcifications, or developing areas of architectural distortion in either breast. The parenchymal pattern is stable from prior exams. There is no skin or axillary abnormality. MM/MM tomosynthesis screening BI IMPRESSION: No mammographic evidence of malignancy. Stable examination. ASSESSMENT: BI-RADS BI-RADS 2 - Benign Findings RECOMMENDATION: Routine annual mammography screening. 1 year F/U This examination should not preclude the clinical evaluation of a suspicious palpable abnormality. This patient's information was entered into a reminder system with a target due date for their next mammogram.
--- NOTE | ~2024-04-29 | MM_ITS ---
EXAMINATION: BONE DENSITOMETRY CLINICAL INDICATION: Age-related osteoporosis without current pathological fracture. COMPARISON: Previous BD dated 03/20/2022 and baseline BD dated 07/30/2016. TECHNIQUE: Using a Decisyon DXA System (software version: 13.1) manufactured by [employer], dual-energy x-ray absorptiometry was performed of the lumbar spine and left hip. The images are of good technical quality. Summary results are attached. FINDINGS: LEFT FEMUR, NECK: Current: BMD 0.759 g/cm2, Z-score -0.4, T-score -2.0, osteopenia. Prior: BMD 0.726 g/cm2. Baseline: BMD 0.810 g/cm2. LEFT FEMUR, TOTAL: Current: BMD 0.828 g/cm2, Z-score 0.0, T-score -1.4, osteopenia, 7.3% increase from previous, 6.2% decrease from baseline (<5% change is not significant). Prior: BMD 0.772 g/cm2. Baseline: BMD 0.883 g/cm2. AP SPINE L1-L4: Current: BMD 0.800 g/cm2, Z-score -1.3, T-score -3.2, osteoporosis, 5.3% increase from previous, 7.0% decrease from baseline (<5% change is not significant). Prior: BMD 0.760 g/cm2. Baseline: BMD 0.860 g/cm2. IDENTIFIED RISK FACTORS: Menopause, hysterectomy, bilateral oophorectomy, kidney disease, rheumatoid arthritis. HISTORY OF FRACTURE: None listed. MEDICATIONS: Calcium supplements or multivitamin, vitamin D, bisphosphonate. MM/XR DEXA axial skeleton IMPRESSION: 1. DIAGNOSIS: Osteoporosis based on the lowest T-score value of -3.2 in the lumbar spine applying World Health Organization criteria. 2. 10-YEAR FRACTURE RISK PREDICTION, FRAX: According to the guidelines, FRAX calculation should only be performed on patients in the osteopenia bone density category. Therefore, FRAX was not performed on this patient. 3. Treatment Recommendations: NOF guidelines recommend consideration for treatment in postmenopausal women and men age 50 and older presenting with the following: -A hip or vertebral (clinical or morphometric) fracture. -T-score less than or equal to -2.5 at the femoral neck or spine after appropriate evaluation to exclude secondary causes. -Low bone mass at the hip or spine and a 10-year fracture probability by FRAX of greater than or equal to 3% for hip fracture or greater than or equal to 20% for major osteoporotic fracture based on the [place] adapted WHO algorithm. 4. Other Recommendations: All treatment decisions require clinical judgment and consideration of individual patient factors, including patient preferences, comorbidities, previous drug use, risk factors not captured in the FRAX model (e.g. frailty, falls, vitamin D deficiency, increased bone turnover, interval significant decline in bone density) and possible under or overestimation of fracture risk by FRAX. Additional medical evaluation for secondary cause of low bone mineral density may be appropriate. FUTURE SCAN RECOMMENDATION: People with diagnosed cases of osteoporosis or at high risk for fracture should have regular bone mineral density tests. For patients eligible for Medicare, routine testing is allowed once every 2 years. The testing frequency can be increased to one year for patients who have rapidly progressing disease, those who are receiving or discontinuing medical therapy to restore bone mass, or have additional risk factors.
== END 2024-04-29 11:28 | disposition home or self-care (01) ==
LOC: HO.MAMMO 11:27
PROVIDERS: PCP Internal Medicine; Visit Provider Internal Medicine
DX: Z12.31 Encounter for screening mammogram for malignant neoplasm of breast (principal); Z13.820 Encounter for screening for osteoporosis; Z78.0 Asymptomatic menopausal state; M81.0 Age-related osteoporosis without current pathological fracture
CPT/HCPCS: 77063; 77067; 77080

== ENCOUNTER → 2024-04-29 14:30 | Outpatient (BNV) | payer OTHER, SELFPAY | PROVIDERS: PCP Internal Medicine; Visit Provider Radiology Diagnostic Radiology | DX: Z12.31 Encounter for screening mammogram for malignant neoplasm of breast (principal) | CPT/HCPCS: 77063; 77067 ==

== ENCOUNTER 2024-10-26 07:37 | Outpatient (REF) | payer OTHER, SELFPAY | END 2024-10-26 07:38 | disposition home or self-care (01) | LOC: HO.LAB 07:37 | PROVIDERS: PCP Internal Medicine; Visit Provider Internal Medicine | DX: E03.9 Hypothyroidism, unspecified (principal) | CPT/HCPCS: 36415; 84443 ==

== ENCOUNTER 2024-11-02 09:55 | Outpatient (AMB) | payer OTHER, SELFPAY ==
--- NOTE | 2024-11-02 09:57 | MHC.OFFVIS ---
Vital Signs 11/02/24 10:00 Height 5 ft 1.06 in Weight 121 lb 0.54 oz BMI 22.8 BP 110/68 Blood Pressure Location Rt brachial Position Sitting Pulse 68 Pulse Source Pulse Oximeter Intake Visit Reasons: f/u osteoporosis-confirmed Intake Note: Patient present today for Osteoporosis follow up. Slumber Room Attendant Required: Yes Slumber Room Attendant Language: Winding Lathe Operator Services: Slumber Room Attendant Offered & Declined Slumber Room Attendant Name: Daughter will interpret Information Interpreted: non-clinical & clinical Accompanied by: Daughter Allergies doxycycline [DOXYCYCLINE] Allergy (Unknown, Verified 11/02/24 10:01) VOMITING/NAUSEA Medication List - Last Reconciled 11/02/24 by Asaf Dick MD alendronate 70 mg PO QWEEK bisacodyl (Dulcolax (bisacodyl)) 20 mg (4 x 5 mg) PO ONCE 1 day bisacodyl (Dulcolax (bisacodyl)) 20 mg (4 x 5 mg) PO ONCE 1 day cholecalciferol (vitamin D3) 25 mcg PO DAILY 90 days levothyroxine 50 mcg PO .as directerd 30 days levothyroxine 75 mcg PO DIRECTED 30 days levothyroxine 88 mcg PO DAILY 90 days polyethylene glycol 3350 (Miralax) 238 grams PO ONCE 1 day polyethylene glycol 3350 (Miralax) 238 grams PO ONCE PRN 1 day HPI Comments Details: 64 YO [Female] is seen in consultation at the request of PCP for Osteoporosis. First diagnosed in 5-7 yrs .Pt is poor historian Received treatment in the past with Prolia , for 5 yrs . Treatment stopped 7 yrs ago Tolerated treatment well without complication. Patient currently alendronate 70 mg Q weekly after attempting to get insurance coverage for anabolic therapy or Prolia without success No history of pathologic fracture or ONJ. . Does not Takes Calcium supplement . Does not Takes IU of Vitamin D daily. Denies ever using PPI, anticoagulant, antiepileptic or glucocorticoid medication. 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 Denies episodes of amenorhea Has history of Kidney stones: Has family history of Osteoporosis but no hip fracture. UTD on dental cleanings and sees dentist every 6 months.Has no seen dentist in 3 yrs No planned upcoming dental work or extractions. DXA dated 03/20/22 :T-Score -3.5 LS Taking calcium and vitamin D Labs: No fx since last visit. Tolerating alendronate without problems PFSH Medical History (Updated 11/01/24 @ 15:04 by Abimbola Drew RN) Venous (peripheral) insufficiency Ear discomfort Pure hypercholesterolemia Vaginal pruritus Osteoporosis Surgical History History of total abdominal hysterectomy and bilateral salpingo-oophorectomy History of right breast biopsy History of tubal ligation Family History Mother Hypertension Poor circulation Father Diabetes Hypertension Hypothyroidism Poor circulation Social History Household Members: Family Housing: House Alcohol intake: current Alcohol intake frequency: holidays/special occasions only Alcohol type: beer Patient Tobacco Use Status: Never used Tobacco e-Cigarette/Vaping Use: Never Used Second Hand Smoke Exposure: No service: No Current occupational status: unemployed Sexual orientation: Straight/Heterosexual Gender identity: Female Cognitive needs: No Hearing needs: No Vision needs: No Physical Exam Vital Signs: BMI result Body Mass Index 22.8 Assessment & Plan Assessment & Plan (1) Osteoporosis: Code(s): M81.0 - Age-related osteoporosis without current pathological fracture Category: Medical Plan: This is a 63-year-old female with a history of osteoporosis with negative secondary workup. It is unclear but it appears that she had taken a 5 year course of Prolia. she is currently on alendronate 70 mg q.week since 2022. recent DEXA showed bone density was stable and urine NTX is suppressed Plan is to Continue alendronate , calcium and vitamin-D supplementation. We will talk to patient about switching to anabolic therapy considering very low bone density persistent lumbar spine but patient is reluctant to switch at this point. I talked extensively with the daughter as an shrub planter about a course of anabolic therapy and then switching back to anti resorptive therapy but again this is not present as an option right now. I did give information to the patient her daughter to review regarding the 3 anabolic therapies of Tymlos, Forteo and Evenity although these were rejected by the patient's insurance company for coverage in the past Coding Level of Care Code Est Pt Level 3 (13067) Diagnoses Osteoporosis M81.0
[2024-11-02 10:00] VITALS: BP 110/68; PULSE 68; BMI 22.8
== END 2024-11-02 10:30 | disposition home or self-care (01) ==
PROVIDERS: PCP Internal Medicine; Visit Provider Internal Medicine Endocrinology, Diabetes & Metabolism
DX: M81.0 Age-related osteoporosis without current pathological fracture (principal)
CPT/HCPCS: 99213

== ENCOUNTER → 2024-11-02 09:55 | Outpatient (BNVA) | payer OTHER, SELFPAY | PROVIDERS: PCP Internal Medicine; Visit Provider Internal Medicine Endocrinology, Diabetes & Metabolism | DX: M81.0 Age-related osteoporosis without current pathological fracture (principal) | CPT/HCPCS: 99212 ==

== ENCOUNTER 2024-11-03 07:05 | Day surgery (SDC) | payer OTHER, SELFPAY ==
[2024-11-01 15:06] VITALS: BMI 22.5
--- NOTE | 2024-11-02 13:13 | HO.ANESPROP2 ---
Documented by User: Loida Arauz NP 11/02/24 13:14 HPI - Anesthesia Eval Consult details Narrative: 64yo F for Colonoscopy PMFSH Active Problems Active Problems: All Active Problems Encounter for screening colonoscopy (Acute) Physical exam (Acute) Venous (peripheral) insufficiency (Acute) Vitiligo (Acute) Well woman exam (Acute) Mild major depression (Acute) Hypovitaminosis D (Acute) Insomnia (Acute) Vulvar lesion (Acute) Vaginitis (Acute) Otitis externa, left (Acute) Bacteria in urine (Acute) Hypothyroidism (Acute) Ear discomfort (Acute) Pure hypercholesterolemia (Acute) Osteoporosis (Acute) Vaginal pruritus (Acute) Past Medical History Medical History Thyroid disease Venous (peripheral) insufficiency Ear discomfort Pure hypercholesterolemia Vaginal pruritus Osteoporosis Family History Family History Mother Hypertension Poor circulation Father Diabetes Hypertension Hypothyroidism Poor circulation Surgical History Surgical History History of total abdominal hysterectomy and bilateral salpingo-oophorectomy History of right breast biopsy History of tubal ligation Social History Social History Household Members: Family Household Members Other:: live alone Housing: House Are you a primary long term care administrator to a significant other at home: No Do you presently have visiting nurse or other home services: No Alcohol intake: current Alcohol intake frequency: holidays/special occasions only Alcohol type: beer Patient Tobacco Use Status: Never used Tobacco e-Cigarette/Vaping Use: Never Used Second Hand Smoke Exposure: No Use of substances other than those prescribed or required for medical reasons: No Have you been hit, kicked, punched, or otherwise hurt by someone within the past year? If so, by whom?: No Are you DNR?: No Advance Directives: No Advance Directives Information Provided: Yes Advance Directives on File: No Recently lost weight without trying: No Nutrition Risks: No Nutritional Risk service: No Current occupational status: unemployed Sexual orientation: Straight/Heterosexual Gender identity: Female Cognitive needs: No Hearing needs: No Vision needs: No Meds Allergies Allergy/AdvReac Type Severity Reaction Status Date / Time doxycycline [DOXYCYCLINE] Allergy Unknown VOMITING/NA Verified 11/02/24 10:01 USEA Exam Height,Weight and Vital Signs: Height 5 ft 1 in Weight 53.977 kg Assessment and Plan Assessment Anesthesia Assessment: Chart Reviewed Documented by User: Iveth Gaston MD 11/03/24 09:05 [facility] Past Medical History Medical History Thyroid disease Venous (peripheral) insufficiency Ear discomfort Pure hypercholesterolemia Vaginal pruritus Osteoporosis Family History Family History Mother Hypertension Poor circulation Father Diabetes Hypertension Hypothyroidism Poor circulation Family history of problems with anesthesia: No Surgical History Surgical History History of total abdominal hysterectomy and bilateral salpingo-oophorectomy History of right breast biopsy History of tubal ligation History of Problems with Anesthesia: No Social History Social History Household Members: Family Household Members Other:: live alone Housing: House Are you a primary long term care administrator to a significant other at home: No Do you presently have visiting nurse or other home services: No Alcohol intake: current Alcohol intake frequency: holidays/special occasions only Alcohol type: beer Patient Tobacco Use Status: Never used Tobacco e-Cigarette/Vaping Use: Never Used Second Hand Smoke Exposure: No Use of substances other than those prescribed or required for medical reasons: No Have you been hit, kicked, punched, or otherwise hurt by someone within the past year? If so, by whom?: No Are you DNR?: No Advance Directives: No Advance Directives Information Provided: Yes Advance Directives on File: No Recently lost weight without trying: No Nutrition Risks: No Nutritional Risk service: No Current occupational status: unemployed Sexual orientation: Straight/Heterosexual Gender identity: Female Cognitive needs: No Hearing needs: No Vision needs: No Meds Allergies Allergy/AdvReac Type Severity Reaction Status Date / Time doxycycline [DOXYCYCLINE] Allergy Unknown VOMITING/NA Verified 11/02/24 10:01 USEA Exam Airway Mallampati Class: II TM Dist: >3cm Neck ROM: Full Heart: rrr Lungs: cta Assessment and Plan Assessment Anesthesia Assessment: Anesthesia Plan Discussed Final Anesthetic Review Family History of Problems with Anesthesia: No History of Problems with Anesthesia: No NPO: Yes ASA Class: II Final Preanesthetic Review: No Changes in Pt Med Stat, Meds/Allgs Chart Reviewed, Consent Obtained/Reviewed and Anes Risks/Benef Reviewed Patient Risk: Low Procedure Risk: Low Anesthetic Plan Anesthetic Plan: MAC: Disposition: Standard PACU
[2024-11-03 08:17] VITALS: BMI 24.6
[2024-11-03 08:23] VITALS: BP 126/64; PULSE 63; RESP 16; TEMP 36.9; O2SAT 98
[2024-11-03] MEDS: Lactated Ringers 1,000 ML 100 ML IVCONT (08:25)
--- NOTE | 2024-11-03 08:53 | P.HPSUR_ITS ---
Pre-Procedural Eval Section A - 24 Hr Update-Section A only Date of Service: 11/03/24 Section B - Complete if H&P > 30 days Chief Complaint: Encounter for screening for malignant neoplasm of Relevant Family History (Specify if Yes): No Relevant Social History: None Present Medications: see Short Stay Collaborative assessment Medical History: Significant History (Thyroid disease Venous (peripheral) insu fficiency Ear discomfort Pure hypercholesterolemia Vaginal pruritus Osteoporosis) History of Previous Operations: Relevant previous surgery/procedure and date(s) (History of total abdominal hysterectomy and bilateral salpingo-oophorectomy History of right breast biopsy History of tubal ligation) Allergies: Allergies Allergy/AdvReac Type Severity Reaction Status Date / Time doxycycline [DOXYCYCLINE] Allergy Unknown VOMITING/NA Verified 11/02/24 10:01 USEA Review of Systems Sugical H&P ROS: Negative: Constitution, Cardiovascular, Respiratory, Neurological, Psychiatric, Hem-Onc, Allergic/Immunologic, Gastrointestinal, Genitourinary, Musculoskeletal, Integumentary, Endocrine and Eyes/Ears/Nose/Throat Exam Surgical H&P Exam: Normal: HEENT, Normal: Heart, Normal: Lungs, Normal: Extremities, Normal: Abdomen, Normal: Skin and Normal: Neurological Plan Diagnosis/Plan: Unchanged I have reviewed the history and physical and performed a pertinent physical examination on my patient. No changes have occurred unless specified. Time Spent With Patient Time: Total time managing care of this patient today ____ minutes.
--- NOTE | 2024-11-03 09:12 | HO.OPN-COLON ---
Colonoscopy Operative Note Operative Note Date of Service: 11/03/24 Narrative: Operative Information Procedure Description: Colonoscopy Indication: Screening Anesthesia: MAC COLONOSCOPY Instrument: Olympus variable stiffness pediatric scope 190L Colonoscopy Monitoring: Vital signs and clinical assessment, continuous EKG monitoring, Pulse oximetry, Carbon Dioxide monitoring and blood pressure monitoring were done throughout the procedure. Colon withdrawal time was 6 minutes. Procedure: The patient was placed in the left lateral decubitis position and pre-procedure medications were administered. After a digital rectal examination of the ano-rectum, the video colonoscope was inserted into the rectum and advanced through the colon to the cecum/TI. The colonoscope was slowly withdrawn in a retrograde panoramic fashion and the colon mucosa was carefully examined including a retroflexed view of the rectum. Findings and interventions are described below. Procedure Difficulty: easy Findings: Terminal Ileum-normal Cecum:normal Right sided retroflexion- normal Ascending Colon: normal Transverse Colon -normal Descending Colon:normal Sigmoid Colon: mild diverticulosis Rectum: Retroflexion with small internal hemorrhoids seen, grade I Anorectum - normal Intervention: none Colon preparation: [place] Bowel Preparation Scale Right colon; 2 Transverse colon: 2 Left colon; 2 (0 = Unprepared colon segment with mucosa not seen due to solid stool that cannot be cleared. 1 = Portion of mucosa of the colon segment seen, but other areas of the colon segment not well seen due to staining, residual stool and/or opaque liquid. 2 = Minor amount of residual staining, small fragments of stool and/or opaque liquid, but mucosa of colon segment seen well. 3 = Entire mucosa of colon segment seen well with no residual staining, small fragments of stool or opaque liquid) Impression and Post Procedure Diagnosis: diverticulosis internal hemorrhoids Plan: High fiber diet leaflet Avoid straining at stool, epsom salts and sitz bath, anusol supps or cream Repeat Colonoscopy in 10 years or earlier if clinically indicated Above findings were reviewed with the patient and relevant handouts were provided if indicated.
[2024-11-03 09:16] VITALS: BP 101/55; PULSE 63; RESP 16; TEMP 36.6; O2SAT 100
[2024-11-03 09:31] VITALS: BP 112/65; PULSE 61; RESP 16; TEMP 36.3; O2SAT 98
== END 2024-11-03 10:13 | disposition home or self-care (01) ==
PROVIDERS: PCP Internal Medicine; Visit Provider Internal Medicine Gastroenterology
PROC: 0DJD8ZZ Inspection of Lower Intestinal Tract, Via Natural or Artificial Opening Endoscopic (ICD-10-PCS; CPT 45378; principal; 2024-11-03 08:40)
DX: Z12.11 Encounter for screening for malignant neoplasm of colon (principal); K57.30 Diverticulosis of large intestine without perforation or abscess without bleeding; K64.0 First degree hemorrhoids; E78.00 Pure hypercholesterolemia, unspecified; M81.0 Age-related osteoporosis without current pathological fracture; Z79.899 Other long term (current) drug therapy; Z88.1 Allergy status to other antibiotic agents; Z98.890 Other specified postprocedural states; Z56.0 Unemployment, unspecified
CPT/HCPCS: 45378; J2003; J2704

== ENCOUNTER → 2024-11-03 07:05 | Outpatient (BNV) | payer OTHER, SELFPAY | PROVIDERS: PCP Internal Medicine; Visit Provider Internal Medicine Gastroenterology | DX: Z12.11 Encounter for screening for malignant neoplasm of colon (principal); K57.30 Diverticulosis of large intestine without perforation or abscess without bleeding; K64.0 First degree hemorrhoids | CPT/HCPCS: 45378 ==

== ENCOUNTER 2024-11-15 08:32 | Outpatient (REF) | payer OTHER, SELFPAY ==
[2024-11-15 18:22] LABS: Bacterial Vaginosis PCR POSITIVE (Negative); Candida Group PCR NOT DETECTED (Not Detect); Candida glab krusei PCR NOT DETECTED (Not Detect); Trichomonas vaginalis PCR NOT DETECTED (Not Detect)
== END 2024-11-15 08:33 | disposition home or self-care (01) ==
LOC: HO.LNP 08:32
PROVIDERS: PCP Internal Medicine; Visit Provider Obstetrics & Gynecology
DX: N76.0 Acute vaginitis (principal)
CPT/HCPCS: 0352U; 99212

== ENCOUNTER 2024-11-15 08:32 | Outpatient (AMB) | payer OTHER, SELFPAY ==
--- NOTE | 2024-11-15 08:35 | MHC.OFFVIS ---
Intake Visit Reasons: Vaginal discharge Electroencephalographic Technologist Required: Yes Electroencephalographic Technologist Language: Video Network Engineer Services: Electroencephalographic Technologist Present (in person) Electroencephalographic Technologist Name: NITIN Rosales Information Interpreted: non-clinical & clinical Residential Real Estate Appraiser: Residential Real Estate Appraiser Present (Sherri) Accompanied by: Self / Same As Patient Allergies doxycycline [DOXYCYCLINE] Allergy (Unknown, Verified 11/15/24 08:36) VOMITING/NAUSEA HPI Comments Details: The patient is complaining of vaginal discharge, clear to whitish, associated with burning and itching but no foul odor. It started few days ago ago. The patient has no other associated symptoms. [facility] Medical History Thyroid disease Venous (peripheral) insufficiency Ear discomfort Pure hypercholesterolemia Vaginal pruritus Osteoporosis Surgical History History of total abdominal hysterectomy and bilateral salpingo-oophorectomy History of right breast biopsy History of tubal ligation Family History Mother Hypertension Poor circulation Father Diabetes Hypertension Hypothyroidism Poor circulation Social History Household Members: Family Household Members Other:: live alone Housing: House Are you a primary early breastfeeding care specialist to a significant other at home: No Do you presently have visiting nurse or other home services: No Alcohol intake: current Alcohol intake frequency: holidays/special occasions only Alcohol type: beer Patient Tobacco Use Status: Never used Tobacco e-Cigarette/Vaping Use: Never Used Second Hand Smoke Exposure: No service: No Current occupational status: unemployed Sexual orientation: Straight/Heterosexual Gender identity: Female Cognitive needs: No Hearing needs: No Vision needs: No Review of Systems Const All systems reviewed & are unremarkable except as noted in HPI and below Card Reports as per HPI and Reports no additional complaints Resp Reports as per HPI and Reports no additional complaints GI Reports as per HPI and Reports no additional complaints Reports as per HPI Physical Exam Const General: cooperative, healthy appearing and comfortable General: Yes bladder normal to palpation External Female Exam: No lesion Speculum Exam - Vagina: normal appearance of the vagina, normal vaginal discharge and not erythematous Speculum Exam - Cervix: Cervix absent Bimanual exam- vagina & uterus: bladder normal to palpation and uterus absent Bimanual Exam- Adnexa, other: Other (No masses detected) Assessment & Plan Assessment & Plan (1) Vulvovaginitis: Code(s): N76.0 - Acute vaginitis Category: Medical Plan: GC/CT, Bacterial Vaginosis panel taken, Terazol 0.8% q.h.s. for 3 days was sent to the patient's pharmacy. The patient was instructed to call if symptoms don't improve in 48 hours. Medications: New terconazole 0.8% 1 appful vaginal BEDTIME 3 days 20 grams 0RF Coding Level of Care Code Est Pt Level 3 (04192) Diagnoses Vulvovaginitis N76.0
== END 2024-11-15 08:46 | disposition home or self-care (01) ==
LOC: HO.HWS 08:32
PROVIDERS: PCP Internal Medicine; Visit Provider Obstetrics & Gynecology
DX: N76.0 Acute vaginitis (principal)
CPT/HCPCS: 99213

== ENCOUNTER 2024-11-16 07:10 | Outpatient (AMB) | payer OTHER, SELFPAY ==
[2024-11-16 07:40] VITALS: BP 122/72; BMI 22.1
--- NOTE | 2024-11-16 07:40 | MHC.PC.OV ---
Vital Signs 11/16/24 07:40 Height 5 ft 1 in Weight 117 lb BMI 22.1 BP 122/72 Blood Pressure Location Lt brachial Position Sitting Intake Visit Reasons: Annual Exam Intake Note: Patient here for a physical exam Die Polisher Required: No Accompanied by: Self / Same As Patient Allergies doxycycline [DOXYCYCLINE] Allergy (Unknown, Verified 11/16/24 07:50) VOMITING/NAUSEA Medication List - Last Reconciled 11/16/24 by Leilani Espana MD alendronate 70 mg PO QWEEK cholecalciferol (vitamin D3) 25 mcg PO DAILY 90 days levothyroxine 88 mcg PO DAILY 90 days metronidazole 500 mg PO BID 7 days terconazole 0.8% 1 appful vaginal BEDTIME 3 days Tobacco use date assessed: 11/16/24 Fall risk assessment: No Falls in past year Last assessed Fall Risk: 11/16/24 Dental Screening Dental Screen Date: 11/16/24 Did you have a dental visit in the last 12 months?: Yes Did you have a dental problem in the last 6 months where you did not have access to dental care?: No Was dental information given to patient?: Patient has dentist HPI HPI Comments History of Present Illness Details The patient is a 64-year-old female presenting for her physical exam. Osteoporosis management included the administration of Fosamax once a week, alongside vitamin D supplementation. The patient has a known allergy to doxycycline and a recent adjustment in her levothyroxine dosage to 88 micrograms due to hypothyroidism. The patient experienced bacterial vaginosis, for which she received a course of metronidazole but has yet to complete the regimen entirely. Depression was noted, quantified by PHQ-9, resulting in an 8 score, yet she does not engage in counseling or therapy services. Mammogram done 2023 and was normal. Pap smear done 2023 with HPV negative. DEXA scan done 2023 showing osteoporosis which is follow by Endocrinology. Colonoscopy done 2023 which was normal. - Colonoscopy completed in October, next scheduled in ten years. - Mammogram and Pap smear completed with negative HPV results; no immediate concerns noted. - Awaiting endocrinology follow-up on December 14 for routine care of osteoporosis. - Scheduled gastroenterology appointment for bone health (osteoporosis) on December 18. - Tetanus vaccination was due as more than ten years had likely lapsed. - Declined influenza vaccination. - Discussed muscle exercise post-tetanus vaccination to alleviate potential arm pain. [facility] Medical History Thyroid disease Venous (peripheral) insufficiency Ear discomfort Pure hypercholesterolemia Vaginal pruritus Osteoporosis Surgical History History of colonoscopy History of total abdominal hysterectomy and bilateral salpingo-oophorectomy History of right breast biopsy History of tubal ligation Family History Mother Hypertension Poor circulation Father Diabetes Hypertension Hypothyroidism Poor circulation Social History Household Members: Family Household Members Other:: live alone Housing: House Are you a primary pet care assistant to a significant other at home: No Do you presently have visiting nurse or other home services: No Alcohol intake: current Alcohol intake frequency: holidays/special occasions only Alcohol type: beer Patient Tobacco Use Status: Never used Tobacco e-Cigarette/Vaping Use: Never Used Second Hand Smoke Exposure: No service: No Current occupational status: unemployed Sexual orientation: Straight/Heterosexual Gender identity: Female Cognitive needs: No Hearing needs: No Vision needs: No Questionnaire PHQ-9 Over the last 2 weeks, how often have you been bothered by any of the following problems? 1. Little interest or pleasure in doing things: several days 2. Feeling down, depressed, or hopeless: several days 3. Trouble falling or staying asleep, or sleeping too much: several days 4. Feeling tired or having little energy: several days 5. Poor appetite or overeating: nearly every day 6. Feeling bad about yourself - or that you are a failure or have let yourself or your family down: several days 7. Trouble concentrating on things, such as reading the newspaper or watching television: not at all 8. Moving or speaking so slowly that other people could have noticed. Or the opposite - being so fidgety or restless that you have been moving around a lot more than usual: not at all 9. Thoughts that you would be better off or of hurting yourself in some way: not at all Total score: 8 Depression Screening Interpretation: Positive Depression Screening Follow-up: Existing condition, Follow-up Visit Requested and Declines treatment Depression Screening Done: Yes 23551 - PHQ-9 Billing: Yes Source: Developed by Drs. Asaf Bhakta, Katarina Ochoa, Jarred Page and colleagues, with an educational dorian from [employer]. Thrive Questionnaire Date Thrive assessed: 11/16/24 I am a: Patient What is your living situation today?: I have a steady place to live Within the past 12 months, did the food you bought not last and you didn't have the money to get more?: Never true Within the past 12 months, did you worry whether your food would run out before you got money to buy more?: Never true Do you have trouble paying for medicines?: No Do you have trouble getting transportation to medical appointments?: No Do you have trouble paying your heating and electricity bill?: No Do you have trouble taking care of your child, family member or friend?: No Do you have trouble with day-to-day activities such as bathing, preparing meals, shopping, managing finances, etc.?: No Are you currently unemployed and looking for a job?: No Are you interested in more education?: No Please select the resources that you would like help with: None Currently or been in a relationship where the following occur: No concerns reported THRIVE Score: 0 AUDIT C Alcohol Use Questionnaire (AUDIT-C) 1. How often do you have a drink containing alcohol?: Monthly or less 2. How many drinks containing alcohol do you have on a typical day when you are drinking?: 1 or 2 3. How often do you have six or more drinks on one occasion?: Never Total Score: 1 Score Reviewed/Action Taken: No JESUS-7 AMB Questionnaire JESUS-7 Date JESUS - 7 assessed: 11/16/24 Feeling nervous, anxious, or on edge: 0 = Not at all Not being able to stop or control worryin = Not at all Worrying too much about different things: 0 = Not at all Trouble relaxin = Not at all Being so restless that it is hard to sit still: 0 = Not at all Becoming easily annoyed or irritable: 0 = Not at all Feeling afraid as if something awful might happen: 0 = Not at all Total JESUS-7 score (0-4 normal; 5-9 mild; 10-14 moderate; 15-21 severe): 0 Source: Developed by Drs. Asaf Bhakta, Katarina Ochoa, Jarred Page and colleagues, with an educational dorian from [employer]. JESUS-7 Assessment Billing JESUS-7 Assessment Tool: JESUS-7 Assessment 15218 Review of Systems Const Details: - General: Reports fatigue. - Respiratory: Denies chest pain, shortness of breath. - Gastrointestinal: Denies nausea, vomiting, regular bowel movements reported. - Urinary: No issues reported. - Musculoskeletal: No swelling in the legs. - Neurological: No balance issues or syncope reported. Physical exam (Primary Care) Vital Signs: Last Vital Signs BP 122/72 11/16/24 07:40 BMI result Body Mass Index 22.1 Tobacco/Smoking Status: Tobacco use Status Tobacco use date assessed 11/16/24 11/16/24 07:47 Patient Tobacco Use Status Never used Tobacco 11/16/24 07:47 Tobacco use type 04/21/24 09:44 e-Cigarette/Vaping Use Never Used 11/16/24 07:47 PHQ-9: PHQ-9 Score PHQ-9: Total score 8 11/16/24 08:16 Depression Screening Interpretation: Positive Depression Screening Follow-up: Existing condition, Follow-up Visit Requested and Declines treatment Thrive Assessment: Date of Thrive Assessment Date Thrive assessed 11/16/24 11/16/24 07:47 Currently or been in a relationship where the following occur: No concerns reported Const Other: General: Cooperative, healthy appearing, comfortable, no acute distress and well developed Orientation: Patient oriented x3 Limitations: No limitations Head: Normal to inspection Ears: Hearing grossly normal bilaterally Nose: Normal external nose present Face and sinus: Normal facial exam Eyes: Appearance normal, both eyes and all related structures Neck: Normal visual inspection and Yes full ROM Respiratory: Normal respiratory effort and able to speak in complete sentences. Clear to auscultation bilaterally Cardiovascular: Regular rate and rhythm. Normal S1 and S2 GI: Normal to inspection. Soft to palpation and nontender. Bowel sounds normal Skin: No rashes or lesions noted Neuro: Patient oriented x3 Extremities: Normal to inspection. No swelling in the legs Office Procedures Flu Questionnaire Does the patient have a severe egg allergy?: No Immunizations Fluarix Triv [id number] (PF) 45 mcg (15 mcg x 3)/0.5 mL IM syringe Performing Provider: Leilani Espana MD Performing Location: [facility] Documented (not given) by: NITIN James on 11/16/24 07:47 Reason Not Given: Patient Refused Boostrix Tdap 2.5 Lf unit-8 mcg-5 Lf/0.5 mL intramuscular syringe Performing Provider: Leilani Espana MD Performing Location: [facility] Administered by: NITIN James on 11/16/24 08:17 Dose Route Admin Location Dispensed Lot Number Expiration Date NDC Auto Top Mechanic 0.5 mL IM Left Deltoid 0.5 mL [id number] 08/28/25 [id number] Second Decimal VIS Given Date VIS Provided VIS Publication Date 11/16/24 Single Vaccine 21 Eligibility Eligibility Date Funding Source Not [facility] Eligible 11/16/24 Private Coding Level of Care Code Est Pt Prev Care 40-64y(76744) Diagnoses Physical exam Z00.00 Mild major depression F32.0 Additional Codes JESUS-7 Assessment Billing - EJSUS-7 Assessment Tool: JESUS-7 Assessment 08212 ([id number]) PHQ-9 - 85984 - PHQ-9 Billing: Yes ([id number]) Time Spent (min) 33 Assessment & Plan Assessment & Plan (1) Physical exam: Code(s): Z00.00 - Encounter for general adult medical examination without abnormal findings Category: Medical (2) Mild major depression: Code(s): F32.0 - Major depressive disorder, single episode, mild Category: Medical Plan - Continue Fosamax and vitamin D for osteoporosis management. - Ensure completion of the metronidazole course for bacterial vaginosis. - Schedule follow-up for thyroid function test in December to assess efficacy of levothyroxine dosage adjustment. - Continue monitoring depression with PHQ-9, encourage discussion on mental health support services. - Administer tetanus booster as planned, monitor for potential muscle soreness. Patient was informed and verbally consented to the use of an ambient scribe for clinic note documentation during this visit. I discussed with the patient the ongoing management of her osteoporosis, ensuring adherence to Fosamax and vitamin D supplementation. We reviewed her current course of treatment for bacterial vaginosis?metronidazole?and the importance of completing the regimen. The patient's thyroid function will be reassessed in December following her increased levothyroxine dosage. Regarding her depression, I reiterated its note on the PHQ-9 scale and encouraged open discussions should her mental health require additional support. I explained the need for a tetanus booster and assuaged concerns about potential arm soreness post-vaccination by suggesting arm exercises. Follow-up appointments were confirmed as scheduled with endocrinology and gastroenterology for further evaluation and management. Orders: Orders Vitamin D 25-OH Total Today E55.9 - Vitamin D deficiency, unspecified Comprehensive [place]. Panel Fast Today Z00.00 - Encounter for general adult medical examination without abnormal findings Influenza [id number] Immunization Today Z23 - Encounter for immunization Lipid Panel Today Z00.00 - Encounter for general adult medical examination without abnormal findings TDaP Immunization Today Z23 - Encounter for immunization Patient Instructions: - Complete the prescribed metronidazole course for bacterial vaginosis. - Continue taking Fosamax once weekly and vitamin D supplements for osteoporosis. - Take levothyroxine daily as prescribed; return for a thyroid function test in December. - Consider options for counseling if depression symptoms worsen or persist. - Schedule and receive tetanus booster as planned; perform arm exercises to reduce discomfort. - Maintain appointments with endocrinology and gastroenterology for further evaluation. - Monitor for any potential adverse reactions from medications, and report any concerns promptly.
== END 2024-11-16 08:22 | disposition home or self-care (01) ==
PROVIDERS: PCP Internal Medicine; Visit Provider Internal Medicine
DX: Z00.00 Encounter for general adult medical examination without abnormal findings (principal); F32.0 Major depressive disorder, single episode, mild; Z23 Encounter for immunization

== ENCOUNTER → 2024-11-16 07:10 | Outpatient (BNVA) | payer OTHER, SELFPAY | PROVIDERS: PCP Internal Medicine; Visit Provider Internal Medicine | DX: Z00.00 Encounter for general adult medical examination without abnormal findings (principal); Z23 Encounter for immunization; F32.0 Major depressive disorder, single episode, mild; M81.0 Age-related osteoporosis without current pathological fracture | CPT/HCPCS: 90471; 90715; 96127; 99396 ==